=== PATIENT | female | born 1950 | race Caucasian/White ===

== ENCOUNTER 2021-01-04 07:42 | Outpatient (CLI) | payer MEDICARE | END 2021-01-04 07:43 | disposition home or self-care (01) | LOC: CSHMAMMO 07:42 | PROVIDERS: ATTEND Internal Medicine | DX: Z12.31 Encounter for screening mammogram for malignant neoplasm of breast (principal); Z98.82 Breast implant status; Z98.890 Other specified postprocedural states | CPT/HCPCS: 77063; 77067 ==

== ENCOUNTER 2022-04-25 12:47 | Outpatient (CLI) | payer MEDICARE | END 2022-04-25 12:48 | disposition home or self-care (01) | LOC: CSHMAMMO 12:47 | PROVIDERS: ATTEND Internal Medicine | DX: Z12.31 Encounter for screening mammogram for malignant neoplasm of breast (principal); R92.1 Mammographic calcification found on diagnostic imaging of breast; M85.851 Other specified disorders of bone density and structure, right thigh; M85.852 Other specified disorders of bone density and structure, left thigh; Z98.82 Breast implant status; Z78.0 Asymptomatic menopausal state | CPT/HCPCS: 77063; 77067; 77080 ==

== ENCOUNTER 2022-06-13 12:09 | Outpatient (CLI) | payer MEDICARE | END 2022-06-13 12:10 | disposition home or self-care (01) | LOC: CSHRAD 12:09 | PROVIDERS: ATTEND Internal Medicine | DX: R05.1 Acute cough (principal); R91.8 Other nonspecific abnormal finding of lung field; J94.8 Other specified pleural conditions | CPT/HCPCS: 71046 ==

== ENCOUNTER 2022-08-19 10:09 | Outpatient (CLI) | payer MEDICARE | END 2022-08-19 10:10 | disposition home or self-care (01) | LOC: CSHRAD 10:09 | PROVIDERS: ATTEND Internal Medicine | DX: R93.89 Abnormal findings on diagnostic imaging of other specified body structures (principal) | CPT/HCPCS: 71046 ==

== ENCOUNTER 2022-10-01 09:21 | Outpatient (CLI) | payer MEDICARE | END 2022-10-01 09:22 | disposition home or self-care (01) | LOC: CSHCT 09:21 | PROVIDERS: ATTEND Neurological Surgery | DX: S32.011D Stable burst fracture of first lumbar vertebra, subsequent encounter for fracture with routine healing (principal); M47.816 Spondylosis without myelopathy or radiculopathy, lumbar region | CPT/HCPCS: 72131 ==